=== PATIENT | male | born 1945 | race Caucasian/White ===

== ENCOUNTER 2017-11-09 19:07 | Emergency (ER) | payer OTHER ==
[~2017-11-09] VITALS: Ht 181.6 cm; Wt 89.5 kg
[~2017-11-09 19:07] MED LIST: CARD4TAB2 PO; GABA400 PO; GEMF600 PO; GLYB1TAB51 PO; IMIP25 PO; LEVA750T9 PO; LORT5TAB PO; METF-324 PO; NOVONP2 SQ; SERT100 PO; SULF1TAB47 PO; THIA100T PO; VIST25CA PO; VOLT100T2 PO; ZOCO80TA PO
[2017-11-09 19:12] VITALS: BP 144/59; PULSE 108; RESP 16; TEMP 98.9; O2SAT 97
[2017-11-09] MEDS ORDERED: NOVO7030P2 SQ (20:26)
[2017-11-09] MEDS ORDERED: [UNRECOGNIZED DRUG - OTHER] (20:26)
[2017-11-09] MEDS ORDERED: METF500T PO (20:26)
[2017-11-09] MEDS ORDERED: GLIP5TAB8 PO (20:26)
[2017-11-09] MEDS ORDERED: ONDANSETRON ODT 4 MG TAB PO ONE (20:45)
--- NOTE | 2017-11-09 20:47 | PD ---
HPI Chief Complaint: Cold / Flu Symptoms Time Seen by Provider: 20:21 Travel History International Travel<30 days: No Contact w/Intl Traveler<30days: No Traveled to known affect area: No History of Present Illness HPI 72-year-old white male presents emergency department for evaluation of headache followed by nausea vomiting with diarrhea. Patient states that he woke this morning with a generalized headache. The patient took some Tylenol which was followed abruptly by vomiting. Patient states that he has had multiple episodes of vomiting throughout the day with loose diarrhea green in color. Patient states that his symptoms were much more severe earlier today and have improved. He had called the nurse hotline and was advised to come to the ER. Patient is up-to-date with his flu shot. He states that he had felt subjectively warm but did not have a documented fever. He denies any sore throat, cough, congestion, abdominal pain, dysuria, frequency, hematemesis or melena. 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) Anxiety: No Depression: No Heart Rhythm Problems: No Cancer: Yes (LUNG WITH LOBECTOMY; PROSTATE WITH RADIATION) Cardiovascular Problems: No High Cholesterol: No Chemotherapy: No Chest Pain: No Congestive Heart Failure: No COPD: No Cerebrovascular Accident: No Diabetes: Yes Patient Takes Glucophage: No Diminished Hearing: Yes ([place]) Endocrine: Yes (DM) GERD: No Glaucoma: No Genitourinary: Yes (PROSTATE CA) Headaches: No Hepatitis: No Hiatal Hernia: No Hypertension: No Immune Disorder: No Kidney Stones: No Musculoskeletal: No Neurologic: No Psychiatric: No Reproductive: No Respiratory: Yes ((R) LUNG COLLAPSE) Immunizations Current: Yes Migraines: No Myocardial Infarction: No Radiation Therapy: Yes Renal Failure: No Seizures: No Sickle Cell Disease: No Sleep Apnea: No Thyroid Disease: No Ulcer: No Tetanus Vaccination: > 5 Years Influenza Vaccination: Yes Past Surgical History Abdominal Surgery: No AICD: No Appendectomy: No Arteriovenous Shunt: No Cardiac Surgery: No Cholecystectomy: No Ear Surgery: No Endocrine Surgery: No Eye Surgery: No Genitourinary Surgery: No Gynecologic Surgery: No Insulin Pump: No Joint Replacement: No Oral Surgery: No Pacemaker: No Thoracic Surgery: Yes (LOBECTOMY) Other Surgery: Yes Social History Alcohol Use: Yes (BEER 12 PACK / WEEK) Tobacco Use: Yes (IN PAST 40 YR BUT NOT NOW) Substance Use: No Allergies-Medications (Allergen,Severity, Reaction): Coded Allergies: No Known Allergies (Verified Adverse Reaction, Unknown, 11/09/17) Reported Meds & Prescriptions Reported Meds & Active Scripts Active Zofran Odt (Ondansetron Odt) 4 Mg Tab 4 Mg SL Q6HR PRN Reported [Bloodthinner] Metformin (Metformin HCl) 500 Mg Tab 500 Mg PO TIDPC Glipizide 5 Mg Tab 5 Mg PO BIDAC Take 30 minutes before a meal Novolin 70-30 Inj (Insulin Human Isoph/Insulin Regular) 1,000 Unit/10 Ml Vial 1 Units SQ Review of Systems Except as stated in HPI: all other systems reviewed are Neg Physical Exam Narrative GENERAL: Well-developed, well-nourished in no acute distress. Nontoxic appearing. HEAD: Normocephalic, atraumatic. EYES: Pupils equal round and reactive. Extraocular motions intact. No scleral icterus. No injection or drainage. ENT: TMs clear without erythema. The external auditory canals clear. Nose: clear . Posterior pharynx is pink and moist. No tonsillar edema or exudate. Uvula midline. Airway patent. NECK: Trachea midline.Supple, nontender, moves head freely. No central bony tenderness or spasm. CARDIOVASCULAR: Regular rate and rhythm without murmurs, gallops, or rubs. RESPIRATORY: Clear to auscultation. Breath sounds equal bilaterally. No wheezes , rales, or rhonchi. GASTROINTESTINAL: Abdomen soft, non-tender, nondistended. No hepato-splenomegaly , or palpable masses. No guarding. EXTREMITIES: No clubbing, cyanosis, or edema. No joint tenderness, effusion, or edema noted. BACK: Nontender without deformity or crepitance. No flank tenderness. Right Data Data Last Documented VS Vital Signs Date Time Temp Pulse Resp B/P (MAP) Pulse Ox O2 Delivery O2 Flow Rate FiO2 11/09/17 19:12 98.9 108 16 144/59 (87) 97 Orders Orders Blood Glucose (11/09/17 20:33) Ondansetron Odt (Zofran Odt) (11/09/17 20:45) Ed Discharge Order (11/09/17 21:53) MDM Medical Decision Making Medical Screen Exam Complete: Yes Emergency Medical Condition: Yes Medical Record Reviewed: Yes Differential Diagnosis Differential diagnosis: Vomiting, diarrhea, gastroenteritis, influenza, electrolyte abnormality Narrative Course Patient is given Zofran 4 mg p.o. Fluid challenge. Accu-Chek. Accu-Chek was 191. Patient was given Zofran he has been taking oral fluids without problems. Patient is feeling much better would like to go home. This is vomiting and diarrhea. Diagnosis Primary Impression: Vomiting and diarrhea Patient Instructions: General Instructions Additional Instructions: Rest. Increase fluids. Zofran for nausea. May take Imodium [id number] for persistent diarrhea. Follow-up with your doctor in the next 2 days for recheck. Return to the ER if any problems. Med/Other Pt SpecificInfo: Prescription(s) given Scripts Ondansetron Odt (Zofran Odt) 4 Mg Tab 4 MG SL Q6HR Y for Nausea/Vomiting, #10 TAB 0 Refills Prov: Lorenzo Bliss MD 11/09/17 Disposition: 01 DISCHARGE HOME Condition: Stable Carlos Be Nov 09, 2017 20:46
[2017-11-09] MEDS ORDERED: ZOFR4TAB3 SL (21:53)
== END 2017-11-09 22:00 | disposition home or self-care (01) ==
LOC: NEPD 19:07
DX: R11.2 Nausea with vomiting, unspecified (principal); R19.7 Diarrhea, unspecified; E11.9 Type 2 diabetes mellitus without complications; Z85.118 Personal history of other malignant neoplasm of bronchus and lung; Z85.46 Personal history of malignant neoplasm of prostate; Z87.891 Personal history of nicotine dependence; Z79.84 Long term (current) use of oral hypoglycemic drugs; Z79.4 Long term (current) use of insulin; Z79.899 Other long term (current) drug therapy
CPT/HCPCS: 99283